=== PATIENT | female | born 1965 | race Caucasian/White ===

== ENCOUNTER 2016-07-11 18:45 | Emergency (ER) | payer OTHER | END 2016-07-11 20:23 | disposition home or self-care (01) | LOC: ER 18:45 | DX: K08.89 Other specified disorders of teeth and supporting structures (principal); R11.2 Nausea with vomiting, unspecified; Z79.899 Other long term (current) drug therapy ==

== ENCOUNTER 2016-07-28 12:03 | Emergency (ER) | payer OTHER | END 2016-07-28 14:00 | disposition short-term general hospital (02) | LOC: ER 12:03 | DX: S82.852A Displaced trimalleolar fracture of left lower leg, initial encounter for closed fracture (principal); F32.9 Major depressive disorder, single episode, unspecified; E11.9 Type 2 diabetes mellitus without complications; I10 Essential (primary) hypertension; Z90.49 Acquired absence of other specified parts of digestive tract; Z98.51 Tubal ligation status; Z79.899 Other long term (current) drug therapy; W19.XXXA Unspecified fall, initial encounter; Y92.009 Unspecified place in unspecified non-institutional (private) residence as the place of occurrence of the external cause | CPT/HCPCS: 96374; 96375; 96376 ==